=== PATIENT | female | born 1955 | race Caucasian/White ===

== ENCOUNTER 2020-06-05 09:00 | Outpatient (RCR) | payer OTHER, SELFPAY ==
[2020-06-05] MEDS: COVID-19 VACC, MRNA(PFIZER)/PF 30 MCG/0.3 ML SYRINGE IM (12:56)
[2020-06-27] MEDS: COVID-19 VACC, MRNA(PFIZER)/PF 30 MCG/0.3 ML SYRINGE IM (11:55)
== END 2020-09-05 23:59 ==
LOC: IMMUN 09:00
PROVIDERS: PCP Family Medicine; Referring Provider Family Medicine; Visit Provider Family Medicine
DX: Z23 Encounter for immunization (principal)
CPT/HCPCS: 0001A; 0002A; 91300